=== PATIENT | female | born 1960 | race Caucasian/White ===

== ENCOUNTER → 2016-08-12 | Outpatient (CLI) | payer BC ==
[~2016-08-12] MED LIST: RSTOPS OP; [UNRECOGNIZED DRUG - OTHER]; fiber supplement
--- NOTE | 2016-08-13 09:11 | DIAGNOSTIC IMAGING REPORT ---
LEFT CLAVICLE COMPLETE CLINICAL HISTORY: LT CLAVICLE PAIN fracture COMPARISON: 05/26/2016 DISCUSSION: Partial healing of a oblique distal left clavicular fracture. Moderate callus formation. Alignment is unchanged. All remaining osseous structures are unremarkable. There is no evidence for soft tissue swelling. IMPRESSION: Moderate healing of a fracture of the distal clavicle. No change in alignment. Electronically signed by: Edmundo Morin M.D. 08/13/2016 9:10 AM Dictated Date/Time: 08/13/2016 9:09 AM
== END | disposition home or self-care (01) ==
LOC: C.RDSM 15:30
PROVIDERS: ATTEND Family Medicine
DX: Z87.81 Personal history of (healed) traumatic fracture (principal)

== ENCOUNTER → 2016-09-17 | Outpatient (CLI) | payer BC | END | disposition home or self-care (01) | LOC: C.PAPS 10:29 | PROVIDERS: ATTEND Obstetrics & Gynecology | DX: Z01.419 Encounter for gynecological examination (general) (routine) without abnormal findings (principal) ==

== ENCOUNTER → 2016-10-29 | Outpatient (CLI) | payer BC ==
--- NOTE | 2016-10-29 13:17 | MAMMOGRAPHY REPORT ---
BILATERAL DIGITAL SCREENING MAMMOGRAM TOMOSYNTHESIS WITH CAD: 10/29/2016 CLINICAL HISTORY: Routine screening. Patient has no complaints. TECHNIQUE: Breast tomosynthesis in addition to standard 2D mammography was performed. Current study was also evaluated with a Computer Aided Detection (CAD) system. COMPARISON: Comparison is made to exams dated: 10/29/2015 mammogram, 10/26/2014 mammogram, 10/24/2013 geovanna mogram, 10/21/2012 mammogram, and 10/21/2011 mammogram - [facility]. BREAST COMPOSITION: The tissue of both breasts is extremely dense, which lowers the sensitivity of mammography. FINDINGS: No suspicious masses, calcifications, or areas of architectural distortion are noted in e ither breast. There has been no significant interval change compared to prior exams. IMPRESSION: ACR BI-RADS CATEGORY 1: NEGATIVE There is no mammographic evidence of malignancy. A 1 year screening mammogram is recommended. The p atient will receive written notification of the results. Approximately 10% of breast cancers are not detected with mammography. A negative mammographic repor t should not delay biopsy if a clinically suggestive mass is present. Dalia Merritt M.D. ah/:10/29/2016 12:46:00 Medicaid Specialist: Katya CARRASQUILLO(Gayle)(M), [facility] letter sent: Normal 1/2 BI-RADS Code: ACR BI-RADS Category 1: Negative
== END | disposition home or self-care (01) ==
LOC: C.MAMM 12:01
PROVIDERS: ATTEND Obstetrics & Gynecology
DX: Z12.31 Encounter for screening mammogram for malignant neoplasm of breast (principal)

== ENCOUNTER → 2017-08-17 | Outpatient (CLI) | payer BC ==
--- NOTE | 2017-08-17 13:51 | DIAGNOSTIC IMAGING REPORT ---
R SHOULDER MIN 2 VIEWS HISTORY: 57 years-old Female WINGED SCAPULA ON RIGHT SIDE acute right shoulder pain with history of remote right clavicular fracture COMPARISON: None available TECHNIQUE: 3 views of the right shoulder FINDINGS: Healed remote fracture of the distal right clavicle. Bones appear mildly demineralized. Mild degenerative changes of the AC and glenohumeral joints. No acute fracture or dislocation. Imaged lung salgado appear clear. IMPRESSION: 1. Mild degenerative changes without acute fracture or dislocation. 2. Healed remote fracture deformity of the distal right clavicle. The above report was generated using voice recognition software. It may contain grammatical, syntax or spelling errors. Electronically signed by: King Sena M.D. 08/17/2017 1:50 PM Dictated Date/Time: 08/17/2017 1:46 PM
== END | disposition home or self-care (01) ==
LOC: C.RDSM 17:23
PROVIDERS: ATTEND Family Medicine
DX: M95.8 Other specified acquired deformities of musculoskeletal system (principal); M25.511 Pain in right shoulder; Z87.81 Personal history of (healed) traumatic fracture

== ENCOUNTER → 2017-09-30 | Outpatient (CLI) | payer OTHER | END | disposition home or self-care (01) | LOC: C.PAPS 11:31 | PROVIDERS: ATTEND Obstetrics & Gynecology | DX: Z12.4 Encounter for screening for malignant neoplasm of cervix (principal) ==

== ENCOUNTER → 2017-11-03 | Outpatient (CLI) | payer OTHER ==
--- NOTE | 2017-11-04 15:24 | MAMMOGRAPHY REPORT ---
BILATERAL DIGITAL SCREENING MAMMOGRAM TOMOSYNTHESIS WITH CAD: 11/03/2017 CLINICAL HISTORY: Routine screening. Patient has no complaints. TECHNIQUE: Breast tomosynthesis in addition to standard 2D mammography was performed. Current study was also evaluated with a Computer Aided Detection (CAD) system. COMPARISON: Comparison is made to exams dated: 10/29/2016 mammogram, 10/29/2015 mammogram, 10/26/2014 geovanna mogram, 10/24/2013 mammogram, 10/21/2012 mammogram, and 10/21/2011 mammogram - [facility] . BREAST COMPOSITION: The tissue of both breasts is extremely dense, which lowers the sensitivity of m ammography. FINDINGS: The parenchymal pattern is unchanged. No developing mass, architectural distortion or clus ter of suspicious microcalcifications is seen in either breast. IMPRESSION: ACR BI-RADS CATEGORY 2: BENIGN There is no mammographic evidence of malignancy. A 1 year screening mammogram is recommended. The pa tient will receive written notification of the results. Approximately 10% of breast cancers are not detected with mammography. A negative mammographic report should not delay biopsy if a clinically suggestive mass is present. Debi Orosco M.D. ay/:11/03/2017 17:18:21 Graining Machine Operator: Katya CARRASQUILLO(Gayle)(M), [facility] letter sent: Normal 1/2 BI-RADS Code: ACR BI-RADS Category 2: Benign
== END | disposition home or self-care (01) ==
LOC: C.MAMM 12:24
PROVIDERS: ATTEND Obstetrics & Gynecology
DX: Z12.31 Encounter for screening mammogram for malignant neoplasm of breast (principal)